=== PATIENT | female | born 1965 | race Two or more races ===

== ENCOUNTER 2018-12-02 06:00 | Day surgery (SDC) | payer OTHER ==
[~2018-12-02] VITALS: Ht 149.9 cm; Wt 63.5 kg
[~2018-12-02 06:00] MED LIST: MEGESTROL ACETA40 MG PO
== END 2018-12-03 08:00 | disposition home or self-care (01) ==
LOC: CIR.AMB 06:00 → EDSTATUS 08:30 → SURH 08:30 → OB/GYN 10:31 → O/R 10:31 → CIR.AMB 12-03 08:00 → OB/GYN 12-03 10:08
DX: N80.0 Endometriosis of uterus (principal); N72 Inflammatory disease of cervix uteri; N83.292 Other ovarian cyst, left side; N83.291 Other ovarian cyst, right side